=== PATIENT | male | born 1935 | race Caucasian/White ===

== ENCOUNTER 2019-03-08 13:48 | Inpatient (IN) ==
[2019-03-08 15:16] LABS: Basophils # 0.1 10*3/uL (0.0-0.2); Basophils % 0.9 % (0.0-0.8); Eosinophils # 0.2 10*3/uL (0.0-0.87); Eosinophils % 3.1 % (0.00-10.9); Hematocrit 38.8 VOL% (42.0-52.0); Hemoglobin 12.6 GM/DL (14.0-18.0); Immature Granulocytes % 3.9 %; Immature Granulocytes Absolute 0.26 #; Lymphocytes # 2.3 10*3/uL (1.4-4.0); Lymphocytes % 33.5 % (21.2-54.2); Mean Corpuscular HGB Conc 32.5 GM/DL (32-36); Mean Corpuscular Volume 88.4 FL (87-102); Mean Platelet Volume 10.5 FL (9.6-12.0); Monocytes % 8.5 % (1.7-12.7); Neutrophils % 50.1 % (38.7-73.9); Platelet Count 308 T/CUMM (130-400); Red Blood Count 4.39 MC/CUMM (3.8-5.5); Red Cell Distribution Width 13.3 % (9.3-17.3); White Blood Count 6.7 T/CUMM (4-12)
[2019-03-08 15:27] LABS: INR 0.9; PT Patient Result 9.6 SECS; Partial Thromboplastin Time 25.1 SECS (0-40)
[2019-03-08 15:41] LABS: Alanine Aminotransferase 22 U/L (16-61); Albumin 4.4 G/DL (3.4-5.0); Alkaline Phosphatase 94 U/L (45-117); Aspartate Amino Transferase 13 U/L (0-37); Bilirubin,Total < 0.39 MG/DL (0.2-1.0); Blood Urea Nitrogen 38 MG/DL (7-18); Calcium 9.4 MG/DL (8.5-10.1); Glucose 162 MG/DL (74-106); Osmolality,Calculated 291.4 MOS/KG (273-304); Total Protein 7.7 G/DL (6.4-8.3)
[2019-03-08] MEDS ORDERED: LABETALOL 20 MG/4 ML SYRINGE IV PRN (18:57)
[2019-03-08] MEDS ORDERED: DEXTROSE 50% 25 GM/50 ML SYRINGE IV PRN (18:57)
[2019-03-08] MEDS ORDERED: GLUCAGON 1 MG VIAL IM PRN ×2 (18:57→19:14)
[2019-03-08] MEDS ORDERED: ONDANSETRON 4 MG/2 ML VIAL IV PRN (18:57)
[2019-03-08 19:36] LABS: Risk Ratio 9.12; VLDL CHOLESTEROL 160.2 MG/DL
[2019-03-08] MEDS: INSULIN LISPRO 100 UNIT/ML SUBCUT SCH (20:07)
[2019-03-08 20:24] LABS: Barbiturates Screen,Urine Negative (Negative); Benzodiazepines Screen,Urine Negative (Negative); Cannabinoid Screen,Urine Negative (Negative); Opiate Screen,Urine Negative (Negative); Phencyclidine Screen,Urine Negative (Negative)
[2019-03-08] MEDS ORDERED: SIMETHICONE DROPS 40 MG/0.6 ML 30 ML BOTTLE PO PRN (23:49)
[2019-03-09] MEDS: SODIUM CHLORIDE 0.9% 1,000 ML IV SCH ×2 (03:22→03:23)
[2019-03-09 04:29] LABS: Basophils # 0.1 10*3/uL (0.0-0.2); Basophils % 0.8 % (0.0-0.8); Eosinophils # 0.3 10*3/uL (0.0-0.87); Eosinophils % 4.2 % (0.00-10.9); Hematocrit 32.5 VOL% (42.0-52.0); Hemoglobin 10.5 GM/DL (14.0-18.0); Immature Granulocytes % 3.5 %; Immature Granulocytes Absolute 0.21 #; Lymphocytes # 2.2 10*3/uL (1.4-4.0); Lymphocytes % 36.9 % (21.2-54.2); Mean Corpuscular HGB Conc 32.3 GM/DL (32-36); Mean Corpuscular Volume 89.3 FL (87-102); Mean Platelet Volume 10.4 FL (9.6-12.0); Monocytes % 10.4 % (1.7-12.7); Neutrophils % 44.2 % (38.7-73.9); Platelet Count 238 T/CUMM (130-400); Red Blood Count 3.64 MC/CUMM (3.8-5.5); Red Cell Distribution Width 13.5 % (9.3-17.3)
[2019-03-09 05:08] LABS: Osmolality,Calculated 289.3 MOS/KG (273-304); Thyroid Stimulating Hormone 2.22 uIU/ml (0.358-3.74)
[2019-03-09] MEDS ORDERED: DEXTROSE 50% 25 GM/50 ML SYRINGE IV PRN (07:06)
[2019-03-09] MEDS ORDERED: GLUCAGON 1 MG VIAL IM PRN (07:06)
[2019-03-09] MEDS ORDERED: ASPIRIN EC 81 MG TABLET PO SCH (09:00)
[2019-03-09 09:12] LABS: Risk Ratio 9.03; VLDL CHOLESTEROL 139.2 MG/DL
[2019-03-09] MEDS: DONEPEZIL 10 MG TABLET PO SCH (09:39)
[2019-03-09] MEDS: PANTOPRAZOLE 40 MG VIAL IV SCH (09:39)
[2019-03-09] MEDS: NEBIVOLOL 10 MG TABLET PO SCH (09:39)
[2019-03-09] MEDS: ASPIRIN EC 81 MG TABLET PO SCH (09:39)
[2019-03-09] MEDS: MAGNESIUM CHLORIDE 64 MG TABLET PO SCH ×2 (09:39→21:12)
[2019-03-09] MEDS: BICALUTAMIDE 50 MG TABLET PO SCH (09:39)
[2019-03-09] MEDS: INSULIN LISPRO 100 UNIT/ML SUBCUT SCH ×2 (09:40→17:00)
[2019-03-09] MEDS: GEMFIBROZIL 600 MG TABLET PO SCH (17:00)
[2019-03-09] MEDS ORDERED: ESCITALOPRAM 10 MG TABLET PO SCH (21:00)
[2019-03-09] MEDS ORDERED: TRIAMTERENE/HCTZ 37.5-25 MG CAPSULE PO SCH (21:00)
[2019-03-09] MEDS ORDERED: CLOPIDOGREL 75 MG TABLET PO SCH (21:00)
[2019-03-09] MEDS ORDERED: ROSUVASTATIN 20 MG TABLET PO SCH (21:00)
[2019-03-10 05:43] LABS: Calcium 8.7 MG/DL (8.5-10.1); Osmolality,Calculated 288.7 MOS/KG (273-304)
[2019-03-10] MEDS: INSULIN LISPRO 100 UNIT/ML SUBCUT SCH (08:43)
[2019-03-10] MEDS: PANTOPRAZOLE 40 MG VIAL IV SCH (08:43)
[2019-03-10] MEDS: BICALUTAMIDE 50 MG TABLET PO SCH (08:44)
[2019-03-10] MEDS: GEMFIBROZIL 600 MG TABLET PO SCH (08:44)
[2019-03-10] MEDS: MAGNESIUM CHLORIDE 64 MG TABLET PO SCH (08:44)
[2019-03-10] MEDS: ASPIRIN EC 81 MG TABLET PO SCH (08:44)
[2019-03-10] MEDS: DONEPEZIL 10 MG TABLET PO SCH (08:44)
[2019-03-10] MEDS: NEBIVOLOL 10 MG TABLET PO SCH (08:44)
[2019-03-10 11:55] VITALS: BP 128/73
[2019-03-15] MEDS ORDERED: DULAGLUTIDE 0.75 MG SUBCUT SCH (07:47)
== END 2019-03-10 13:50 | DRG 65 ==
LOC: N.ED 13:48 → N.EDINP 18:57 → SUPCPDRO 18:57 → N.4E 20:11
PROVIDERS: ADMIT Internal Medicine; ATTEND Internal Medicine

== ENCOUNTER 2021-05-05 21:58 | Inpatient (IN) ==
[2021-05-06] MEDS ORDERED: NITROGLYCERIN SL 0.4 MG TABLET SL PRN (00:59)
[2021-05-06] MEDS ORDERED: ALUMINUM/MAGNES/SIMETH MAX STR 30 ML UDCUP PO PRN (01:05)
[2021-05-06] MEDS ORDERED: ACETAMINOPHEN 325 MG TABLET PO PRN (01:06)
[2021-05-06] MEDS ORDERED: COLCHICINE 0.6 MG CAPSULE PO PRN (02:34)
[2021-05-06 06:02] LABS: Basophils # 0.1 10*3/uL (0.0-0.2); Basophils % 1.3 % (0.0-0.8); Eosinophils # 0.2 10*3/uL (0.0-0.87); Eosinophils % 4.2 % (0.00-10.9); Hematocrit 31.1 VOL% (42.0-52.0); Hemoglobin 9.5 GM/DL (14.0-18.0); Immature Granulocytes % 3.3 %; Immature Granulocytes Absolute 0.17 #; Lymphocytes # 2.2 10*3/uL (1.4-4.0); Lymphocytes % 42.4 % (21.2-54.2); Mean Corpuscular HGB Conc 30.5 GM/DL (32-36); Mean Corpuscular Volume 89.6 FL (87-102); Mean Platelet Volume 10.4 FL (9.6-12.0); Monocytes % 11.6 % (1.7-12.7); Neutrophils % 37.2 % (38.7-73.9); Platelet Count 384 T/CUMM (130-400); Red Blood Count 3.47 MC/CUMM (3.8-5.5); Red Cell Distribution Width 14.6 % (9.3-17.3); White Blood Count 5.2 T/CUMM (4-12)
[2021-05-06 06:20] LABS: Calcium 8.8 MG/DL (8.5-10.1); Potassium 4.1 MMOL/L (3.5-5.1)
[2021-05-06 06:23] LABS: Alanine Aminotransferase 15 U/L (16-61); Albumin 3.1 G/DL (3.4-5.0); Alkaline Phosphatase 45 U/L (45-117); Aspartate Amino Transferase 31 U/L (0-37); Bilirubin,Total < 0.39 MG/DL (0.2-1.0); Blood Urea Nitrogen 24 MG/DL (7-18); Calcium 8.9 MG/DL (8.5-10.1); Carbon Dioxide 25 MMOL/L (21-32); Estimated Glom Filtration Rate 37 ML/MIN; Glucose 128 MG/DL (74-106); Osmolality,Calculated 286.3 MOS/KG (273-304); Potassium 4.1 MMOL/L (3.5-5.1); Sodium 141 MMOL/L (136-145); Total Protein 6.1 G/DL (6.4-8.2)
[2021-05-06 06:30] LABS: Band Neutrophils 1 % (0-10); Eosinophils 4 % (0-10); Hypochromasia 1+; Lymphocytes 38 % (20-55); Microcytosis 1+; Ovalocytes Slight; Platelet Estimate Adequate; Segmented Neutrophils 44 % (50-85); Total Cells Counted 100
[2021-05-06] MEDS: MAGNESIUM CHLORIDE 64 MG TABLET PO SCH ×2 (09:11→20:54)
[2021-05-06] MEDS: ASPIRIN EC 81 MG TABLET PO SCH (09:11)
[2021-05-06] MEDS: glipiZIDE 10 MG TABLET PO SCH ×2 (09:11→20:54)
[2021-05-06] MEDS: PIOGLITAZONE 15 MG TABLET PO SCH (09:11)
[2021-05-06] MEDS: FENOFIBRATE 145 MG TABLET PO SCH (09:11)
[2021-05-06] MEDS: ENOXAPARIN 80 MG/0.8 ML SYRINGE SUBCUT SCH ×2 (09:12→20:53)
[2021-05-06] MEDS ORDERED: SIMVASTATIN 20 MG TABLET PO SCH (21:00)
[2021-05-07 06:24] LABS: Basophils # 0.1 10*3/uL (0.0-0.2); Basophils % 1.2 % (0.0-0.8); Eosinophils # 0.3 10*3/uL (0.0-0.87); Eosinophils % 5.7 % (0.00-10.9); Hematocrit 32.5 VOL% (42.0-52.0); Hemoglobin 10.1 GM/DL (14.0-18.0); Immature Granulocytes % 2.4 %; Immature Granulocytes Absolute 0.12 #; Lymphocytes % 39.6 % (21.2-54.2); Mean Corpuscular HGB Conc 31.1 GM/DL (32-36); Mean Corpuscular Volume 88.1 FL (87-102); Mean Platelet Volume 10.4 FL (9.6-12.0); Monocytes % 10.3 % (1.7-12.7); Neutrophils % 40.8 % (38.7-73.9); Platelet Count 381 T/CUMM (130-400); Red Blood Count 3.69 MC/CUMM (3.8-5.5); Red Cell Distribution Width 14.4 % (9.3-17.3)
[2021-05-07 06:59] LABS: Calcium 9.1 MG/DL (8.5-10.1); Osmolality,Calculated 282.4 MOS/KG (273-304); Potassium 4.1 MMOL/L (3.5-5.1); Risk Ratio 9.5; Thyroid Stimulating Hormone 3.06 uIU/ml (0.358-3.74)
[2021-05-07] MEDS ORDERED: COLCHICINE 0.6 MG CAPSULE PO PRN (07:44)
[2021-05-07] MEDS: ENOXAPARIN 80 MG/0.8 ML SYRINGE SUBCUT SCH ×2 (08:21→20:34)
[2021-05-07] MEDS: glipiZIDE 10 MG TABLET PO SCH ×2 (08:22→20:34)
[2021-05-07] MEDS: PIOGLITAZONE 15 MG TABLET PO SCH (08:22)
[2021-05-07] MEDS: FENOFIBRATE 145 MG TABLET PO SCH (08:22)
[2021-05-07] MEDS: ASPIRIN EC 81 MG TABLET PO SCH (08:22)
[2021-05-07] MEDS: MAGNESIUM CHLORIDE 64 MG TABLET PO SCH ×3 (08:22→20:34)
[2021-05-07] MEDS ORDERED: METOPROLOL TARTRATE 25 MG TABLET PO SCH (09:00)
[2021-05-07] MEDS: METOPROLOL TARTRATE 25 MG TABLET PO SCH (20:34)
[2021-05-07] MEDS: ROSUVASTATIN 20 MG TABLET PO SCH (20:34)
[2021-05-08 06:21] LABS: Basophils # 0.1 10*3/uL (0.0-0.2); Basophils % 1.4 % (0.0-0.8); Eosinophils # 0.2 10*3/uL (0.0-0.87); Eosinophils % 3.9 % (0.00-10.9); Hematocrit 32.4 VOL% (42.0-52.0); Hemoglobin 10.1 GM/DL (14.0-18.0); Immature Granulocytes % 2.9 %; Immature Granulocytes Absolute 0.16 #; Lymphocytes # 2.2 10*3/uL (1.4-4.0); Lymphocytes % 39.6 % (21.2-54.2); Mean Corpuscular HGB Conc 31.2 GM/DL (32-36); Mean Corpuscular Volume 88.3 FL (87-102); Mean Platelet Volume 10.5 FL (9.6-12.0); Monocytes % 12.2 % (1.7-12.7); Platelet Count 391 T/CUMM (130-400); Red Blood Count 3.67 MC/CUMM (3.8-5.5); Red Cell Distribution Width 14.5 % (9.3-17.3); White Blood Count 5.6 T/CUMM (4-12)
[2021-05-08 06:45] LABS: Calcium 8.9 MG/DL (8.5-10.1); Osmolality,Calculated 283.4 MOS/KG (273-304)
[2021-05-08] MEDS: ASPIRIN EC 81 MG TABLET PO SCH (08:45)
[2021-05-08] MEDS: METOPROLOL TARTRATE 25 MG TABLET PO SCH ×2 (08:45→21:06)
[2021-05-08] MEDS: FENOFIBRATE 145 MG TABLET PO SCH (08:45)
[2021-05-08] MEDS: glipiZIDE 10 MG TABLET PO SCH ×2 (08:45→21:06)
[2021-05-08] MEDS: MAGNESIUM CHLORIDE 64 MG TABLET PO SCH ×2 (08:46→21:06)
[2021-05-08] MEDS: PIOGLITAZONE 15 MG TABLET PO SCH (08:48)
[2021-05-08] MEDS: ROSUVASTATIN 20 MG TABLET PO SCH (21:06)
[2021-05-08] MEDS: INSULIN REGULAR 100 UNIT/ML SUBCUT SCH (21:06)
[2021-05-09 04:34] LABS: Basophils # 0.1 10*3/uL (0.0-0.2); Basophils % 1.1 % (0.0-0.8); Eosinophils # 0.3 10*3/uL (0.0-0.87); Eosinophils % 4.1 % (0.00-10.9); Hematocrit 32.7 VOL% (42.0-52.0); Hemoglobin 10.3 GM/DL (14.0-18.0); Immature Granulocytes % 3.5 %; Immature Granulocytes Absolute 0.23 #; Lymphocytes # 2.3 10*3/uL (1.4-4.0); Lymphocytes % 34.9 % (21.2-54.2); Mean Corpuscular HGB Conc 31.5 GM/DL (32-36); Mean Corpuscular Volume 87.9 FL (87-102); Mean Platelet Volume 10.3 FL (9.6-12.0); Monocytes % 11.2 % (1.7-12.7); Neutrophils % 45.2 % (38.7-73.9); Platelet Count 392 T/CUMM (130-400); Red Blood Count 3.72 MC/CUMM (3.8-5.5); Red Cell Distribution Width 14.6 % (9.3-17.3); White Blood Count 6.6 T/CUMM (4-12)
[2021-05-09 05:14] LABS: Calcium 8.6 MG/DL (8.5-10.1); Osmolality,Calculated 285.1 MOS/KG (273-304)
[2021-05-09] MEDS ORDERED: LACTATED RINGERS 1,000 ML IV SCH (07:30)
[2021-05-09] MEDS: INSULIN REGULAR 100 UNIT/ML SUBCUT SCH ×2 (08:02→12:23)
[2021-05-09] MEDS ORDERED: propofoL 200 MG/20 ML VIAL IV ONE (08:37)
[2021-05-09] MEDS ORDERED: LIDOCAINE 100 MG/5 ML SYRINGE ONE (08:37)
[2021-05-09] MEDS ORDERED: ETOMIDATE 20 MG/10 ML VIAL IV ONE (08:37)
[2021-05-09] MEDS: FENOFIBRATE 145 MG TABLET PO SCH (09:34)
[2021-05-09] MEDS: PIOGLITAZONE 15 MG TABLET PO SCH (09:34)
[2021-05-09] MEDS: ASPIRIN EC 81 MG TABLET PO SCH (09:34)
[2021-05-09] MEDS: MAGNESIUM CHLORIDE 64 MG TABLET PO SCH (09:34)
[2021-05-09] MEDS: METOPROLOL TARTRATE 25 MG TABLET PO SCH (09:34)
[2021-05-09] MEDS: glipiZIDE 10 MG TABLET PO SCH (09:34)
[2021-05-09 12:46] VITALS: BP 108/49
== END 2021-05-09 15:41 | disposition home or self-care (01) | DRG 281 ==
LOC: N.TELES
PROVIDERS: ADMIT Internal Medicine Cardiovascular Disease; ATTEND Internal Medicine Cardiovascular Disease